=== PATIENT | female | born 1970 | race Caucasian/White ===

== ENCOUNTER → 2021-06-27 10:48 | Outpatient (BNVA) | payer MEDICAID, SELFPAY | PROVIDERS: Family Provider Family Medicine; Visit Provider Nurse Practitioner Family | DX: Z20.822 Contact with and (suspected) exposure to COVID-19 (principal) | CPT/HCPCS: 87635 ==

== ENCOUNTER 2021-10-05 15:19 | Outpatient (CLI) | payer MEDICAID, SELFPAY ==
--- NOTE | 2021-10-05 15:25 | XR_ITS ---
WS: [id number] XR sacroiliac jts m 3V 98072 REASON FOR EXAM: L40.9 - Psoriasis, unspecified FINDINGS: Sacroiliac joints are well defined. No erosions. No bridging or fusion. XR/XR sacroiliac jts m 3V [id number] IMPRESSION: No findings of sacroiliitis.
--- NOTE | 2021-10-05 15:25 | XR_ITS ---
WS: [id number] XR hand LT 2V 01747 REASON FOR EXAM: M25.50 - Pain in unspecified joint FINDINGS: No fracture or focal bone lesion. Mild joint space narrowing with subchondral sclerosis and small marginal osteophytes seen in the PIP and DIP joints of the fingers. Similar arthropathy in the joints of the thumb with lateral subluxatio n of the first metacarpal at the first MP joint. No erosions. No periosteal reaction. No soft tissue abnormality. XR/XR hand LT 2V [id number] IMPRESSION: Osteoarthritis of the left hand.
--- NOTE | 2021-10-05 15:25 | XR_ITS ---
WS: [id number] XR hand RT 2V 94744 REASON FOR EXAM: M25.50 - Pain in unspecified joint FINDINGS: No fracture or focal bone lesion. Mild narrowing of the joint spaces with mild subchondral sclerosis and small marginal osteophytes in the PIP and DIP joints of the fingers. Similar character arthropathy with more severe involvement arthropathic change in the joints of the t humb with mild lateral subluxation of the first metacarpal at the first metacarpal phalangeal joint. No erosions. No periosteal reaction No soft tissue abnormality. XR/XR hand RT 2V [id number] IMPRESSION: Osteoarthritis of the right hand.
[2021-10-05 16:15] LABS: Basophils # 0.1 10^3/uL (0.0-0.1); Basophils % 1.5 %; Eosinophils # 0.1 10^3/uL (0.0-0.8); Hematocrit 38.2 % (37.0-47.0); Hemoglobin 12.2 g/dL (11.5-15.3); Mean Corpuscular HGB Conc 31.9 g/dL (30.0-36.0); Mean Corpuscular Hemoglobin 28.2 pg (28.0-34.0); Mean Corpuscular Volume 88.4 fl (81-99); Mean Platelet Volume 11.2 fL (7.4-10.4); Monocytes # 0.5 10^3/uL (0.2-0.9); Neutrophils # 3.31 10^3/uL (1.8-7.7); Neutrophils % 55.5 %; Nucleated Red Blood Cells % 0 %; Platelet Count 302 10^3/cmm (130-400); Red Blood Count 4.32 10^6/uL (4.1-5.3); Red Cell Distribution Width 15.4 % (12.1-15.1)
[2021-10-05 16:58] LABS: Erythrocyte Sedimentation Rate 5 mm/hr (0-15)
[2021-10-05 17:26] LABS: Chloride 105 mmol/L (98-107); Potassium 4.4 mmol/L (3.5-5.1); Sodium 140 mmol/L (136-145)
[2021-10-05 17:42] LABS: Hepatitis B Core AB, Total Non-Reactive (Nonreactive); Hepatitis B Surface Antigen Non-Reactive (Nonreactive); Hepatitis C Virus Antibody Non-Reactive (Nonreactive)
[2021-10-05 18:34] LABS: Alanine Aminotransferase 27 U/L (0-33); Albumin Level 4.2 g/dL (3.5-5.2); Alkaline Phosphatase 136 IU/L (35-105); Anion Gap 15.4 (5-19); Aspartate Amino Transferase 28 U/L (0-32); Blood Urea Nitrogen 13 mg/dL (6-20); C Reactive Protein 0.3 mg/L (0.0-4.9); Calcium 9.1 mg/dL (8.5-10.5); Carbon Dioxide 24 mmol/L (22-29); Glomerular Filtration Rate 104.6 mL/min (90-130); Glucose 84 mg/dL (65-115); Osmolality Calculated 289 mOsm/kg (285-295); Total Bilirubin 0.2 mg/dL (0.15-1.2); Total Protein 6.2 g/dL (6.6-8.7)
[2021-10-06 13:03] LABS: COMPLEMENT COMPONENT C3C 78 mg/dL (83-193); COMPLEMENT COMPONENT C4C 23 mg/dL (15-57)
[2021-10-06 13:07] LABS: COMPLEMENT, TOTAL (CH50) 60 U/mL (31-60)
[2021-10-06 13:37] LABS: Cyclic Citrullinated Peptide <16 UNITS
[2021-10-07 12:57] LABS: CENTROMERE B ANTIBODY <1.0 NEG AI (<1.0 NEG); JO-1 ANTIBODY <1.0 NEG AI (<1.0 NEG); RNP ANTIBODY <1.0 NEG AI (<1.0 NEG); SCL-70 ANTIBODY <1.0 NEG AI (<1.0 NEG); SJOGREN'S ANTIBODY (SS-A) <1.0 NEG AI (<1.0 NEG); SM ANTIBODY <1.0 NEG AI (<1.0 NEG); SS-B <1.0 NEG AI (<1.0 NEG)
[2021-10-07 13:11] LABS: Quantiferon Mitogen 9.71 IU/mL; Quantiferon Nil 0.01 IU/mL; Quantiferon Plus TB1 0.01 IU/mL; Quantiferon Plus TB2 0.01 IU/mL; Quantiferon TB Gold NEGATIVE (NEGATIVE)
[2021-10-07 14:31] LABS: HLA-B27 NEGATIVE (NEGATIVE)
[2021-10-08 09:41] LABS: THYROID PEROXIDASE ANTIBODIES 740 IU/mL (<9)
[2021-10-08 17:38] LABS: ANA SCREEN, IFA POSITIVE (NEGATIVE)
[2021-10-08 17:42] LABS: ANA PATTERN Nuclear, Speckled
[2021-10-12 14:58] LABS: DNA AB (DS) CRITHIDIA,IFA NEGATIVE (NEGATIVE)
== END 2021-10-05 15:20 | disposition home or self-care (01) ==
LOC: RAD 15:24
PROVIDERS: PCP Family Medicine; Visit Provider Internal Medicine
DX: M25.50 Pain in unspecified joint (principal); M45.0 Ankylosing spondylitis of multiple sites in spine; L40.9 Psoriasis, unspecified; R76.8 Other specified abnormal immunological findings in serum; Z11.59 Encounter for screening for other viral diseases; Z11.1 Encounter for screening for respiratory tuberculosis; F17.210 Nicotine dependence, cigarettes, uncomplicated
CPT/HCPCS: 36415; 72202; 73120; 80053; 83516; 85025; 85651; 86140; 86160; 86162; 86200; 86235; 86255; 86376; 86480; 86704; 86803; 86812; 87340; 99204

== ENCOUNTER → 2021-10-28 13:23 | Outpatient (BNVA) | payer MEDICAID, SELFPAY | PROVIDERS: PCP Family Medicine; Visit Provider Internal Medicine | DX: M25.50 Pain in unspecified joint (principal); R76.8 Other specified abnormal immunological findings in serum; F17.210 Nicotine dependence, cigarettes, uncomplicated | CPT/HCPCS: 99214 ==

== ENCOUNTER → 2022-03-14 09:59 | Outpatient (BNVA) | payer MEDICAID, SELFPAY | PROVIDERS: PCP Family Medicine; Visit Provider Internal Medicine | DX: M25.50 Pain in unspecified joint (principal); R76.8 Other specified abnormal immunological findings in serum | CPT/HCPCS: 99213 ==

== ENCOUNTER 2023-08-03 10:03 | Outpatient (CLI) | payer MEDICAID, SELFPAY ==
--- NOTE | 2023-08-03 10:00 | MM_ITS ---
WS: [id number] BILATERAL SCREENING DIGITAL TOMOSYNTHESIS MAMMOGRAM WITH CAD HISTORY: SCREENING COMPARISON: None available. Bilateral CC and MLO views with tomosynthesis and synthetic mammography submitted. Computer aided det ection analyzed. Breast composition: There are scattered areas of fibroglandular density. No suspicious masses, microc alcifications or architectural distortion. Benign calcifications in each breast. IMPRESSION: MM/[place] [id number] BI-RADS: 2-Benign FOLLOW UP: 1 Year Follow-up
== END 2023-08-03 10:04 | disposition home or self-care (01) ==
PROVIDERS: PCP Family Medicine; Visit Provider Family Medicine
DX: Z12.31 Encounter for screening mammogram for malignant neoplasm of breast (principal)
CPT/HCPCS: 77063; 77067